=== PATIENT | male | born 1980 | race African-American/Black ===

== ENCOUNTER 2016-11-08 21:47 | Emergency (ER) | payer OTHER ==
[~2016-11-08] VITALS: Ht 177.8 cm; Wt 75.7 kg
[~2016-11-08 21:47] MED LIST: Atarax,Vistaril PO; Levothroid,Synthroid PO; Niferex-150,Ferrex 1 PO; PROzac PO; ZITHROMAX Z-PA250 MG PO; oxyCODONE PO
[2016-11-08] MEDS ORDERED: NARCAN4 MG NS (23:09)
[2016-11-08 23:39] VITALS: BP 120/71
== END 2016-11-08 23:39 | disposition home or self-care (01) ==
LOC: EME → EDBD 21:47 → EME 23:39
DX: F11.10 Opioid abuse, uncomplicated (principal); E11.9 Type 2 diabetes mellitus without complications; I10 Essential (primary) hypertension; E03.9 Hypothyroidism, unspecified; F17.200 Nicotine dependence, unspecified, uncomplicated
CPT/HCPCS: 99281; 99284; J2310

== ENCOUNTER 2017-05-06 20:32 | Emergency (ER) | payer OTHER ==
[~2017-05-06] VITALS: Ht 177.8 cm; Wt 74.5 kg
[~2017-05-06 20:32] MED LIST changes: +NARCAN4 MG NS
[2017-05-06 21:13] LABS: HEMATOCRIT 45.7 % (38.0-50.0); MCH 31.8 PG (29.0-34.0); MCHC 34.4 G/DL (30.0-36.0); MCV 92.5 FL (86-99); MEAN PLAT.VOLUME 9.6 uM^3 (9.0-12.4); PLATELET COUNT 275 K/uL (156-360); RBC DIS.WIDTH-CV 12.6 % (11.8-14.6); RBC DIS.WIDTH-SD 43.2 % (39-53); RED BLOOD COUNT 4.94 M/uL (4.00-5.50); WHITE BLOOD COUNT 7.8 K/uL (4.1-10.2)
[2017-05-06 21:21] LABS: CHLORIDE 107 mEq/L (99-109); POTASSIUM 3.6 mEq/L (3.7-5.4); SODIUM 147 mEq/L (136-147)
[2017-05-06 21:23] LABS: GLUCOSE 85 mg/dL (70-99)
[2017-05-06 21:24] LABS: ANION GAP 14 MEQ/L (2-14)
[2017-05-06 21:27] LABS: GFR ESTIMATE (CALCULATED) > 59 mL/min/
[2017-05-06 21:28] LABS: UREA NITROGEN (BUN) 9 mg/dL (9-23)
[2017-05-06] MEDS ORDERED: ZITHROMAX Z-PA250 MG PO (22:27)
[2017-05-06] MEDS ORDERED: PROAIR HFA8.5 GM IH (22:27)
[2017-05-06] MEDS ORDERED: MEDROL DOSEPAK4 MG PO (22:27)
[2017-05-06 22:55] VITALS: BP 00/0
[2017-05-07] MEDS ORDERED: NARCAN4 MG NS (03:41)
== END 2017-05-06 22:56 | disposition left against medical advice (07) ==
LOC: EME 20:32
DX: J40 Bronchitis, not specified as acute or chronic (principal); R55 Syncope and collapse; F17.200 Nicotine dependence, unspecified, uncomplicated; F10.10 Alcohol abuse, uncomplicated
CPT/HCPCS: 71020; 80048; 85027; 93005; 99281; 99283

== ENCOUNTER 2017-05-07 01:09 | Emergency (ER) | payer OTHER ==
[~2017-05-07] VITALS: Ht 177.8 cm; Wt 73.1 kg
[~2017-05-07 01:09] MED LIST changes: +MEDROL DOSEPAK4 MG PO; +PROAIR HFA8.5 GM IH
[2017-05-07 01:41] LABS: EOSINOPHIL (%) 0 % (0-5); HEMATOCRIT 42.9 % (38.0-50.0); IMMATURE GRANULOCYTE (%) 0.3 % (0.0-0.7); INSTRUMENT ABS NEUTROPHIL CT 7.1 K/uL; LYMPHOCYTE COUNT 1.5 K/uL (1.0-2.8); MCH 31.2 PG (29.0-34.0); MCHC 33.1 G/DL (30.0-36.0); MCV 94.3 FL (86-99); MEAN PLAT.VOLUME 9.6 uM^3 (9.0-12.4); MONOCYTE (%) 4.8 % (3-12); MONOCYTE COUNT 0.4 K/uL (0-0.8); NEUTROPHIL (%) 77.9 % (45-76); NEUTROPHIL COUNT 7.1 K/uL (1.8-6.4); PLATELET COUNT 233 K/uL (156-360); RBC DIS.WIDTH-CV 12.8 % (11.8-14.6); RBC DIS.WIDTH-SD 44.7 % (39-53); RED BLOOD COUNT 4.55 M/uL (4.00-5.50); WHITE BLOOD COUNT 9.1 K/uL (4.1-10.2)
[2017-05-07 01:49] LABS: CHLORIDE 107 mEq/L (99-109); POTASSIUM 3.5 mEq/L (3.7-5.4); SODIUM 147 mEq/L (136-147)
[2017-05-07 01:52] LABS: ANION GAP 15 MEQ/L (2-14); GLUCOSE 115 mg/dL (70-99)
[2017-05-07 01:54] LABS: GFR ESTIMATE (CALCULATED) > 59 mL/min/; SERUM ETHYL ALCOHOL 111 mg/dL
[2017-05-07 01:55] LABS: UREA NITROGEN (BUN) 9 mg/dL (9-23)
[2017-05-07] MEDS ORDERED: NARCAN4 MG NS (03:41)
[2017-05-07 04:00] VITALS: BP 125/68
== END 2017-05-07 04:00 | disposition home or self-care (01) ==
LOC: EME → EDBD 01:09 → EME 01:09
PROVIDERS: Emergency Medicine
DX: T40.601A Poisoning by unspecified narcotics, accidental (unintentional), initial encounter (principal); T51.0X1A Toxic effect of ethanol, accidental (unintentional), initial encounter; R40.20 Unspecified coma; R06.81 Apnea, not elsewhere classified; Y92.002 Bathroom of unspecified non-institutional (private) residence as the place of occurrence of the external cause; F11.10 Opioid abuse, uncomplicated; F10.129 Alcohol abuse with intoxication, unspecified; F17.200 Nicotine dependence, unspecified, uncomplicated
CPT/HCPCS: 80048; 81003; 85025; 99281; 99285; G0480; J2310